=== PATIENT | male | born 1990 | race Caucasian/White ===

== ENCOUNTER 2025-08-04 15:23 | Emergency (ER) | payer SELFPAY ==
[2025-08-04 16:43] LABS: Troponin I Less than 0.010 ng/mL (< 0.028)
[2025-08-04 16:44] LABS: ALT (SGPT) 41 U/L (Less than 45); AST (SGOT) 22 U/L (11-34); Albumin 4.3 g/dL (3.1-4.5); Alkaline Phosphatase 86 U/L (40-110); Anion Gap 14 mmol/L (10-20); BUN (Urea Nitrogen) 9 mg/dL (8.9-20.6); Bilirubin, Total 0.5 mg/dL (0.3-1.2); Calc. Creatinine Clearance 0 mL/min (70-130); Calcium 9.0 mg/dL (7.8-10.44); Carbon Dioxide 26 mmol/L (22-29); Chloride 104 mmol/L (98-107); Globulin 3.2 g/dL (2.4-3.5); Glucose 152 mg/dL (70-105); Potassium 3.9 mmol/L (3.5-5.1); Sodium 140 mmol/L (136-145)
[2025-08-04 16:58] LABS: Hematocrit 41.6 % (42.0-52.0); Hemoglobin 14.1 g/dL (14.0-18.0); Mean Corpuscular Hemoglobin 29.6 pg (27.0-31.0); Mean Corpuscular Volume 87.0 fl (78.0-98.0); Platelet Count 301 10x3/uL (130-400); Red Blood Cell (RBC) Count 4.78 mill/uL (4.70-6.10); White Blood Cell (WBC) Count 8.8 10x3/uL (4.8-10.8)
[2025-08-04 16:59] LABS: MDiff Complete? YES
[2025-08-04] MEDS ORDERED: Aspirin Chewable 81 MG TAB ONE (17:08)
[2025-08-04 17:25] LABS: Glucose, Urine (Dipstick) Negative (Negative); Leukocyte Negative (Negative); Protein, Urine (Dipstick) 30 mg/dL (Neg-Trace); Specific Gravity, Urine 1.020 (1.005-1.030)
[2025-08-04 17:34] LABS: Cocaine Metabolite Screen Negative (Negative); THC/Cannabinoid Screen PRELIM POSITIVE (Negative); Tricyclic Screen Negative (Negative)
[2025-08-04 17:37] LABS: Bacteria/HPF 2+ HPF (None Seen); CAUTI Indications for Culture Pelvic or flank pain; Mucous/LPF 2+ LPF (<2+); RBC/HPF 0-3 HPF (0-3)
[2025-08-04 17:44] LABS: Urine Culture Reflex Yes Yes
== END 2025-08-04 17:48 ==
LOC: NAV ERS 15:23
DX: R07.2 Precordial pain (principal); F15.99 Other stimulant use, unspecified with unspecified stimulant-induced disorder; I25.2 Old myocardial infarction; F17.290 Nicotine dependence, other tobacco product, uncomplicated
CPT/HCPCS: 71045; 80053; 80306; 81001; 84484; 85025; 87086; 93005

== ENCOUNTER 2025-08-05 11:51 | Emergency (ER) | payer OTHER, SELFPAY ==
[2025-08-05] MEDS ORDERED: Acetaminophen 500 MG TAB ONE (12:05)
[2025-08-05 12:30] LABS: INR-International Normal Ratio 1.1; Prothrombin Time 13.9 sec (12.0-14.7)
[2025-08-05 12:31] LABS: PTT 34.6 sec (22.9-36.1)
[2025-08-05 12:33] LABS: D-Dimer Test Less than 0.27 mcg/mL (0.27-0.43)
[2025-08-05 12:38] LABS: ALT (SGPT) 40 U/L (Less than 45); AST (SGOT) 27 U/L (11-34); Albumin 4.0 g/dL (3.1-4.5); Alkaline Phosphatase 83 U/L (40-110); Anion Gap 14 mmol/L (10-20); BUN (Urea Nitrogen) 7 mg/dL (8.9-20.6); Bilirubin, Total 0.5 mg/dL (0.3-1.2); Calc. Creatinine Clearance 0 mL/min (70-130); Calcium 8.9 mg/dL (7.8-10.44); Carbon Dioxide 26 mmol/L (22-29); Chloride 103 mmol/L (98-107); Globulin 3.1 g/dL (2.4-3.5); Glucose 91 mg/dL (70-105); Lipase 113 U/L (8-78); Potassium 4.4 mmol/L (3.5-5.1); Sodium 139 mmol/L (136-145); Troponin I Less than 0.010 ng/mL (< 0.028)
[2025-08-05 12:55] LABS: Hematocrit 39.8 % (42.0-52.0); Hemoglobin 13.7 g/dL (14.0-18.0); Mean Corpuscular Hemoglobin 29.8 pg (27.0-31.0); Mean Corpuscular Volume 86.3 fl (78.0-98.0); Platelet Count 261 10x3/uL (130-400); Red Blood Cell (RBC) Count 4.61 mill/uL (4.70-6.10); White Blood Cell (WBC) Count 7.4 10x3/uL (4.8-10.8)
[2025-08-05 13:08] LABS: MDiff Complete? YES
[2025-08-05 14:32] LABS: Troponin I Less than 0.010 ng/mL (< 0.028)
== END 2025-08-05 14:50 ==
LOC: EEVIPCON 11:51 → NAV ERS 11:51
DX: R07.9 Chest pain, unspecified (principal); K85.90 Acute pancreatitis without necrosis or infection, unspecified; I25.2 Old myocardial infarction; F17.290 Nicotine dependence, other tobacco product, uncomplicated
CPT/HCPCS: 71045; 74177; 80053; 83690; 83880; 84484; 85025; 85379; 85610; 85730; 93005; 94760; J3010